=== PATIENT | female | born 1945 | race Caucasian/White ===

== ENCOUNTER 2018-10-13 16:17 | Inpatient (IN) | payer OTHER ==
[~2018-10-13] VITALS: Ht 154.9 cm; Wt 43.1 kg
[2018-10-13 16:34] VITALS: BP_SYST 99
[2018-10-13] MEDS ORDERED: NACL 0.9% 1,000 ML IV ONE (16:41)
[2018-10-13 17:37] LABS: HEMATOCRIT 37.9 % (36-48); HEMOGLOBIN 12.8 g/dL (12.0-16.0); RED BLOOD CELL COUNT(AUTO) 4.31 MIL/uL (4.2-6.2)
[2018-10-13 17:38] LABS: BASOPHILS # (AUTO) 0.1 K/uL (0.0-0.2); BASOPHILS % (AUTO) 0.7 % (0.0-2.0); EOSINOPHILS % (AUTO) 0.5 % (0.0-4.0); LYMPHOCYTES # (AUTO) 3.5 K/uL (1.0-5.5); LYMPHOCYTES % (AUTO) 39.1 % (20.5-51.5); MEAN CORPUSCULAR HEMOGLOBIN 30 pg (27-31); MEAN CORPUSCULAR HGB CONC 34 % (32-36); MEAN CORPUSCULAR VOLUME 88 fL (79.0-98.0); MONOCYTES # (AUTO) 0.8 K/uL (0.0-1.0); MONOCYTES % (AUTO) 8.5 % (1.7-9.3); NEUTROPHILS # (AUTO) 4.6 K/uL (1.8-7.7); NEUTROPHILS % (AUTO) 51.2 % (40.0-70.0); PLATELET COUNT (AUTO) 214 K/uL (130-430); RED CELL DISTRIBUTION WIDTH 13.5 % (9.0-15.0)
[2018-10-13 17:49] LABS: ANION GAP 7 (5-15); CALCIUM 9.3 mg/dL (8.4-11.0); CHLORIDE 101 mmol/L (98-107); CREATININE 0.72 mg/dL (0.55-1.30); GLUCOSE 106 mg/dL (70-99); SODIUM SERUM 136 mmol/L (136-145); UREA NITROGEN, BLOOD 21 mg/dL (8-21)
[2018-10-13 17:51] LABS: INR 1.1 (0.8-1.2); PROTHROMBIN TIME 11.3 SECS (9.5-12.5)
[2018-10-13 17:52] LABS: POTASSIUM 2.8 mmol/L (3.5-5.1)
[2018-10-13 17:53] LABS: ALANINE AMINOTRANSFERASE 50 U/L (12-78); ALBUMIN 3.3 g/dL (3.4-4.8); AMYLASE 56 U/L (0-100); ASPARTATE AMINOTRANSFERASE 73 U/L (10-37); LIPASE 607 U/L (73-393); TOTAL BILIRUBIN 0.9 mg/dL (0.0-1.0)
[2018-10-13] MEDS ORDERED: POTASSIUM CHLORIDE 20 MEQ/PKT PACKET PO ONE (18:00)
[2018-10-13 18:17] LABS: CKMB RELATIVE INDEX 0.7 (0.0-2.9); CREATINE KINASE MB 4.7 ng/mL (0-3.6)
[2018-10-13 18:23] LABS: ALCOHOL, BLOOD < 3 mg/dL (<10)
[2018-10-13] MEDS ORDERED: LEVO125T8 PO (18:24)
[2018-10-13 18:39] LABS: BILIRUBIN,URINE 1+ (NEGATIVE); BLOOD, URINE 3+ (NEGATIVE); CLARITY/URINE CLEAR (CLEAR); COLOR,URINE YELLOW (YELLOW); GLUCOSE,URINE NEGATIVE (NEGATIVE); KETONES,URINE 1+ (NEGATIVE); LEUKOCYTE ESTERASE ,URINE 1+ (NEGATIVE); NITRITE, URINE NEGATIVE (NEGATIVE); PROTEIN URINE 1+ (NEGATIVE); UROBILINOGEN,URINE 0.2 (0.2-1.0)
[2018-10-13 18:48] LABS: RBC,URINE 20-50 /HPF (0-3)
[2018-10-13 18:49] LABS: BACTERIA,URINE MODERATE /HPF (None Seen)
[2018-10-13] MEDS ORDERED: NACL 0.9% 1,000 ML IV SCH (18:51)
[2018-10-13 19:24] VITALS: BP_SYST 108
[2018-10-13] MEDS ORDERED: ZOLPIDEM TARTRATE 5 MG TABLET PO ONE (22:00)
[2018-10-13] MEDS ORDERED: ACETAMINOPHEN 325 MG TABLET PO PRN (23:15)
[2018-10-13] MEDS ORDERED: ALBUTEROL SULFATE 0.083% 2.5 MG/3 ML VIAL.NEB INH PRN (23:15)
[2018-10-13] MEDS ORDERED: POTASSIUM CHLORIDE 10 MEQ TAB.PRT.SR PO ONE (23:15)
[2018-10-13] MEDS ORDERED: ONDANSETRON HCL 4 MG/2 ML VIAL IVP PRN (23:15)
[2018-10-13] MEDS ORDERED: cefTRIAXone 1 GM VIAL ONE (23:57)
[2018-10-13] MEDS: NACL 0.9% 1,000 ML IV SCH (23:58)
[2018-10-13] MEDS: cefTRIAXone 1 GM in D5W 50 ML IV SCH (23:59)
[2018-10-14 00:27] VITALS: BP_SYST 97
[2018-10-14 01:37] VITALS: BP_SYST 108
[2018-10-14 03:36] LABS: BARBITURATE, URINE NEGATIVE (NEG <=200); BENZODIAZEPINE, URINE NEGATIVE (NEG <=150); CANNABINOID, URINE NEGATIVE (NEG <=50); COCAINE, URINE NEGATIVE (NEG <=150); METHAMPHETAMINES SCREEN,URINE NEGATIVE (NEG <=500); OPIATE, URINE NEGATIVE (NEG <=100); PHENCYCLIDINE SCREEN,URINE NEGATIVE (NEG <=25); UR TRICYCLIC ANTIDEPRESSANTS NEGATIVE (NEG <=300); URINE AMPHETAMINE NEGATIVE (NEG <=500); URINE METHADONE NEGATIVE (NEG <=200); URINE OXYCODONE SCREEN NEGATIVE (NEG <=100); URINE PROPOXYPHENE SCREEN NEGATIVE (NEG <=300)
[2018-10-14 04:11] LABS: ANION GAP 7 (5-15); CALCIUM 8.2 mg/dL (8.4-11.0); CHLORIDE 108 mmol/L (98-107); CREATININE 0.55 mg/dL (0.55-1.30); GLUCOSE 91 mg/dL (70-99); POTASSIUM 3.3 mmol/L (3.5-5.1); SODIUM SERUM 143 mmol/L (136-145); UREA NITROGEN, BLOOD 15 mg/dL (8-21)
[2018-10-14 04:27] LABS: ALANINE AMINOTRANSFERASE 41 U/L (12-78); ALBUMIN 2.4 g/dL (3.4-4.8); ASPARTATE AMINOTRANSFERASE 56 U/L (10-37)
[2018-10-14 04:39] LABS: TOTAL BILIRUBIN 0.3 mg/dL (0.0-1.0)
[2018-10-14 04:53] LABS: HEMATOCRIT 34.2 % (36-48); HEMOGLOBIN 11.4 g/dL (12.0-16.0); MEAN CORPUSCULAR HEMOGLOBIN 29 pg (27-31); MEAN CORPUSCULAR HGB CONC 33 % (32-36); MEAN CORPUSCULAR VOLUME 88 fL (79.0-98.0); RED BLOOD CELL COUNT(AUTO) 3.88 MIL/uL (4.2-6.2); WHITE BLOOD COUNT (AUTO) 6.8 K/uL (4.8-10.8)
[2018-10-14 04:54] LABS: BASOPHILS % (AUTO) 0.2 % (0.0-2.0); EOSINOPHILS # (AUTO) 0.1 K/uL (0.0-0.4); EOSINOPHILS % (AUTO) 2.1 % (0.0-4.0); MONOCYTES # (AUTO) 0.5 K/uL (0.0-1.0); NEUTROPHILS # (AUTO) 3.1 K/uL (1.8-7.7); NEUTROPHILS % (AUTO) 45.7 % (40.0-70.0); PLATELET COUNT (AUTO) 174 K/uL (130-430); RED CELL DISTRIBUTION WIDTH 13.5 % (9.0-15.0)
[2018-10-14 04:59] LABS: CKMB RELATIVE INDEX 0.6 (0.0-2.9); CREATINE KINASE MB 2.5 ng/mL (0-3.6)
[2018-10-14] MEDS: NACL 0.9% 1,000 ML IV SCH ×3 (05:04→23:14)
[2018-10-14] MEDS ORDERED: POTASSIUM CHLORIDE 10 MEQ TAB.PRT.SR PO ONE (07:30)
[2018-10-14 08:00] VITALS: BP_SYST 98
[2018-10-14] MEDS ORDERED: NS 500 ML IV ONE (08:00)
[2018-10-14] MEDS ORDERED: KCL 20 mEq in 100 mL (PREMIX) 200 ML IV ONE (08:00)
[2018-10-14 08:50] LABS: FREE T4 (FREE THYROXINE) 0.6 ng/dl (0.8-1.5)
[2018-10-14 12:57] VITALS: BP_SYST 117
[2018-10-14] MEDS: LEVOTHYROXINE SODIUM 0.125 MG TABLET PO SCH (14:21)
[2018-10-14 16:34] VITALS: BP_SYST 103
[2018-10-14 19:47] VITALS: BP_SYST 114
[2018-10-14] MEDS: cefTRIAXone 1 GM in D5W 50 ML IV SCH (23:13)
[2018-10-15 00:16] VITALS: BP_SYST 94
[2018-10-15] MEDS: NACL 0.9% 1,000 ML IV SCH ×3 (06:46→20:33)
[2018-10-15 07:28] LABS: HEMOGLOBIN 11.6 g/dL (12.0-16.0); LYMPHOCYTES % (AUTO) 49.8 % (20.5-51.5); MEAN CORPUSCULAR HEMOGLOBIN 29 pg (27-31); MEAN CORPUSCULAR HGB CONC 33 % (32-36); MEAN CORPUSCULAR VOLUME 88 fL (79.0-98.0); PLATELET COUNT (AUTO) 162 K/uL (130-430); RED BLOOD CELL COUNT(AUTO) 3.96 MIL/uL (4.2-6.2); RED CELL DISTRIBUTION WIDTH 13.7 % (9.0-15.0); WHITE BLOOD COUNT (AUTO) 5.5 K/uL (4.8-10.8)
[2018-10-15 07:29] LABS: BASOPHILS % (AUTO) 0.3 % (0.0-2.0); EOSINOPHILS # (AUTO) 0.3 K/uL (0.0-0.4); EOSINOPHILS % (AUTO) 5.2 % (0.0-4.0); LYMPHOCYTES # (AUTO) 2.7 K/uL (1.0-5.5); MONOCYTES # (AUTO) 0.4 K/uL (0.0-1.0); MONOCYTES % (AUTO) 6.7 % (1.7-9.3); NEUTROPHILS # (AUTO) 2.1 K/uL (1.8-7.7)
[2018-10-15 07:42] LABS: ALANINE AMINOTRANSFERASE 41 U/L (12-78); ALBUMIN 2.2 g/dL (3.4-4.8); ANION GAP 2 (5-15); ASPARTATE AMINOTRANSFERASE 57 U/L (10-37); CALCIUM 8.3 mg/dL (8.4-11.0); CHLORIDE 106 mmol/L (98-107); CREATININE 0.46 mg/dL (0.55-1.30); GLUCOSE 85 mg/dL (70-99); POTASSIUM 3.7 mmol/L (3.5-5.1); SODIUM SERUM 134 mmol/L (136-145); TOTAL BILIRUBIN 0.3 mg/dL (0.0-1.0); UREA NITROGEN, BLOOD 7 mg/dL (8-21)
[2018-10-15 08:13] VITALS: BP_SYST 106
[2018-10-15] MEDS: LEVOTHYROXINE SODIUM 0.125 MG TABLET PO SCH (08:14)
[2018-10-15 09:24] LABS: CKMB RELATIVE INDEX 0.6 (0.0-2.9); CREATINE KINASE MB 2.1 ng/mL (0-3.6)
[2018-10-15] MEDS: LORazepam 2 MG/ML VIAL IV PRN ×2 (11:35→20:30)
[2018-10-15 12:44] VITALS: BP_SYST 115
[2018-10-15 17:03] VITALS: BP_SYST 99
[2018-10-15 19:50] VITALS: BP_SYST 102
[2018-10-15] MEDS: cefTRIAXone 1 GM in D5W 50 ML IV SCH (23:33)
[2018-10-16] VITALS: BP_SYST 99
[2018-10-16] MEDS: LORazepam 2 MG/ML VIAL IV PRN (03:02)
[2018-10-16] MEDS: NACL 0.9% 1,000 ML IV SCH (05:09)
[2018-10-16 07:39] LABS: ALBUMIN 2.3 g/dL (3.4-4.8); ASPARTATE AMINOTRANSFERASE 67 U/L (10-37); CALCIUM 8.2 mg/dL (8.4-11.0); CHLORIDE 106 mmol/L (98-107); CREATININE 0.42 mg/dL (0.55-1.30); GLUCOSE 82 mg/dL (70-99); POTASSIUM 3.2 mmol/L (3.5-5.1); SODIUM SERUM 136 mmol/L (136-145); TOTAL BILIRUBIN 0.4 mg/dL (0.0-1.0); UREA NITROGEN, BLOOD 5 mg/dL (8-21)
[2018-10-16 08:00] VITALS: BP_SYST 100
[2018-10-16] MEDS: LEVOTHYROXINE SODIUM 0.125 MG TABLET PO SCH (08:08)
[2018-10-16 08:09] LABS: ALANINE AMINOTRANSFERASE 65 U/L (12-78); ANION GAP < 3 (5-15)
[2018-10-16] MEDS ORDERED: ASPI-1153 PO (10:12)
[2018-10-16] MEDS ORDERED: DONE10TA44 PO (10:13)
[2018-10-16] MEDS ORDERED: MEMA5TAB PO (10:13)
[2018-10-16] MEDS ORDERED: MULT-1089 PO (10:14)
[2018-10-16] MEDS ORDERED: CEPH250C PO (10:15)
[2018-10-16 12:43] VITALS: BP_SYST 120
[2018-10-16 13:29] VITALS: BP_SYST 114; BP_SYST 120
[2018-10-16 16:02] VITALS: BP_SYST 114
== END 2018-10-16 17:15 | disposition home or self-care (01) | DRG 884 ==
LOC: SED 16:17 → STU 18:54 → SMU 10-16 07:50
PROVIDERS: ADMIT Internal Medicine; ATTEND Internal Medicine
DX: F03.90 Unspecified dementia, unspecified severity, without behavioral disturbance, psychotic disturbance, mood disturbance, and anxiety (principal); M62.82 Rhabdomyolysis; N39.0 Urinary tract infection, site not specified; E44.1 Mild protein-calorie malnutrition; I48.91 Unspecified atrial fibrillation; E87.6 Hypokalemia; E03.9 Hypothyroidism, unspecified; I10 Essential (primary) hypertension; E86.0 Dehydration; I34.1 Nonrheumatic mitral (valve) prolapse; I48.0 Paroxysmal atrial fibrillation; Z82.49 Family history of ischemic heart disease and other diseases of the circulatory system; Z88.6 Allergy status to analgesic agent; Z88.1 Allergy status to other antibiotic agents; Z88.8 Allergy status to other drugs, medicaments and biological substances; Z90.49 Acquired absence of other specified parts of digestive tract
CPT/HCPCS: 36415; 70450-TC; 70551; 71045; 71046-TC; 80053; 80307; 81000-TC; 82150-TC; 82550-TC; 82553-TC; 83605; 83690-TC; 83735-TC; 83880; 84439; 84443-TC; 84480; 84484; 85025; 85379; 85610-TC; 85730-TC; 87040-TC; 87086; 93005; 93306; 96365; 97110-GP; 97116-GP; 97530-GP; 99285; G0378; G0482; J0696; J2060; J3480; J7030; J7042; J7060

== ENCOUNTER 2019-02-12 11:01 | Day surgery (SDC) | payer OTHER ==
[~2019-02-12] VITALS: Ht 160 cm; Wt 49.9 kg
[~2019-02-12 11:01] MED LIST: ASPI-1153 PO; CEPH250C PO; DONE10TA44 PO; LEVO125T8 PO; MEMA5TAB PO; MULT-1089 PO
[2019-02-12] MEDS ORDERED: ONDANSETRON HCL 4 MG/2 ML VIAL IVP ONE (13:30)
[2019-02-12] MEDS ORDERED: KETOROLAC TROMETHAMINE 15 MG VIAL IVP ONE (13:30)
[2019-02-12] MEDS ORDERED: BUPIVACAINE LIPOSOME/PF 266 MG/20 ML VIAL INFIL ONE ×2 (13:30→14:49)
[2019-02-12] MEDS ORDERED: NS IRRIG SOLN 1000 ML IR ONE (13:30)
[2019-02-12] MEDS ORDERED: MIDAZOLAM HCL 5 MG/5 ML VIAL IVP ONE (13:30)
[2019-02-12] MEDS ORDERED: ROCURONIUM BROMIDE 10 MG/ML (ZEMURON) IV ONE (13:30)
[2019-02-12] MEDS ORDERED: DEXAMETHASONE SOD PHOSPHATE 4 MG/ML VIAL IVP ONE (13:30)
[2019-02-12] MEDS ORDERED: CLINDAMYCIN PHOSPHATE 600 mg/50mL D5W IV ONE (13:30)
[2019-02-12] MEDS ORDERED: PROPOFOL 200MG/ 20ML VIAL (DIPRIVAN) IV ONE (13:30)
[2019-02-12] MEDS ORDERED: fentaNYL CITRATE/PF 100 MCG/2 ML AMP IVP ONE (13:30)
[2019-02-12] MEDS ORDERED: ROPIVACAINE HCL/PF 5 MG/ML 0.5% 30 ML VIAL INFIL ONE (13:30)
[2019-02-12] MEDS ORDERED: SEVOFLURANE 15 MIN GAS INH ONE (13:30)
[2019-02-12] MEDS ORDERED: WELSR150 PO (13:57)
[2019-02-12] MEDS ORDERED: POLYMYXIN 500,000/BACIT.10,000 UNITS in NS IRR 1 L IR ONE (14:14)
[2019-02-12] MEDS ORDERED: LR 1,000 ML IV SCH (14:39)
[2019-02-12] MEDS ORDERED: MEPERIDINE HCL/PF 25 MG/ML DISP.SYRIN IVP PRN (14:45)
[2019-02-12] MEDS ORDERED: HYDROmorphone 2 MG/ML VIAL IVP PRN ×2 (14:45)
[2019-02-12] MEDS ORDERED: HYDROmorphone 1 MG INJ. 1 MG/ML AMPUL IVP PRN ×2 (14:45→15:00)
[2019-02-12] MEDS ORDERED: HYDROcodone/ACETAMIN 5-325 MG TAB (NORCO/ VICODIN) PO PRN (15:00)
[2019-02-12] MEDS ORDERED: ONDANSETRON HCL 4 MG/2 ML VIAL IVP PRN (15:00)
[2019-02-12 16:24] VITALS: BP_SYST 127
--- NOTE | 2019-02-12 16:30 | NUR ---
Admission Patient arrived on unit on bed. Patient is able to state name and date of , but unable to state time. Patient is post op and unable to state where she is from. Iv patent, intact, and infusing as ordered. SCD in place, educated patient on the incentive spirometer, how to use, when to use, and how often to uise, patient verbalized understanding, return demonstration performed by patient. 1000cc inspired. No complaints of pain. Abdominal surgical dressing in place, with scant amount of blood. Abdominal binder in place. Vital signs stable at this time. On safety precautions, bed alarm on, bed in lowest position, call light within reach. Will continue to monitor.
--- NOTE | 2019-02-12 16:41 | NUR ---
CONSULTATION PAGED/CALLED Reason for Consultation: MEDICAL MANAGEMENT Person Who was Notified: SAMREEN Consulting Physician: DR. MESA Soda Flaker Specialty: HOSPITALIST Ordering Physician: DR. SMITH
--- NOTE | 2019-02-12 17:09 | NUR ---
Spoke to DR. Ny regarding consult for medical management , home medication to reconcile.
--- NOTE | 2019-02-12 18:09 | NUR ---
Closing note Patient noted to be confused and forgetful, reoriented patient to date and time, and regarding post op. Patient stated she forgot. Cl;ear liquid diet offered to patient, patient stated she is having to pee a lot so she will not drink. On safety and aspiration precautions, HOB kept elevated, bed in lowest position, bed alarm on, call light within reach. Patient in stable condition. All needs met.
--- NOTE | 2019-02-12 19:04 | NUR ---
[facility] Spoke with daughter, patient is from [facility] memory unit. Daughter would like to be called upon discharge and take patient back to [facility].
--- NOTE | 2019-02-12 19:32 | NUR ---
OPENING NOTE Received report from day shift nurse. Patient resting in bed awake, alert, oriented x3. Breathing unlabored and even on room air. No signs of distress, no needs at this time. Fall and safety precautions in place. Bed in lowest position, brake on, alarm on, call light within reach. Family at the bedside. Will continue to monitor.
[2019-02-12 20:00] VITALS: BP_SYST 117
--- NOTE | 2019-02-12 21:09 | NUR ---
Patient's bed alarm went off. Placed patient back into bed. Educated patient on safety and how to use the call light. Instructed patient to stay in bed. Patient verbalized understanding.
--- NOTE | 2019-02-12 21:34 | NUR ---
Patient attempting to get out of bed. Placed patient back into bed. Re-oriented patient. Bed alarm on.
--- NOTE | 2019-02-12 23:21 | NUR ---
Patient resting in bed awake, alert, oriented x3. Breathing unlabored and even on room air. No signs of distress, no needs at this time. Fall and safety precautions in place. Bed in lowest position, brake on, alarm on, call light within reach. Will continue to monitor.
[2019-02-13 00:28] VITALS: BP_SYST 112
--- NOTE | 2019-02-13 03:43 | NUR ---
Patient resting in bed with eyes closed. Breathing unlabored and even on room air. No signs of distress, no needs at this time. Fall and safety precautions in place. Bed in lowest position, brake on, alarm on, call light within reach. Will continue to monitor.
[2019-02-13 06:21] LABS: BASOPHILS % (AUTO) 0.1 % (0.0-2.0); EOSINOPHILS % (AUTO) 0.1 % (0.0-4.0); HEMATOCRIT 36.6 % (36-48); LYMPHOCYTES # (AUTO) 1.4 K/uL (1.0-5.5); LYMPHOCYTES % (AUTO) 14.5 % (20.5-51.5); MEAN CORPUSCULAR HEMOGLOBIN 29 pg (27-31); MEAN CORPUSCULAR HGB CONC 33 % (32-36); MEAN CORPUSCULAR VOLUME 89 fL (79.0-98.0); MONOCYTES # (AUTO) 0.9 K/uL (0.0-1.0); MONOCYTES % (AUTO) 9.6 % (1.7-9.3); NEUTROPHILS # (AUTO) 7.5 K/uL (1.8-7.7); NEUTROPHILS % (AUTO) 75.7 % (40.0-70.0); PLATELET COUNT (AUTO) 205 K/uL (130-430); RED BLOOD CELL COUNT(AUTO) 4.13 MIL/uL (4.2-6.2); RED CELL DISTRIBUTION WIDTH 13.6 % (9.0-15.0); WHITE BLOOD COUNT (AUTO) 9.9 K/uL (4.8-10.8)
[2019-02-13] MEDS ORDERED: LEVOTHYROXINE SODIUM 0.125 MG TABLET PO SCH (06:30)
--- NOTE | 2019-02-13 06:42 | NUR ---
Nutrition Update Keyon Scale 17 noted. Pt admitted for Ventral Hernia w/o Obstruction or Gangrene Diet: Clear liquid BMI: 19.5 kg/m2 RD to follow per nutrition care standards.
[2019-02-13 06:51] LABS: ALANINE AMINOTRANSFERASE 34 U/L (12-78); ALBUMIN 2.9 g/dL (3.4-4.8); ANION GAP 4 (5-15); ASPARTATE AMINOTRANSFERASE 25 U/L (10-37); CALCIUM 8.9 mg/dL (8.4-11.0); CHLORIDE 106 mmol/L (98-107); CREATININE 0.68 mg/dL (0.55-1.30); GLUCOSE 89 mg/dL (70-99); POTASSIUM 4.3 mmol/L (3.5-5.1); SODIUM SERUM 141 mmol/L (136-145); TOTAL BILIRUBIN 0.5 mg/dL (0.0-1.0); UREA NITROGEN, BLOOD 12 mg/dL (8-21)
--- NOTE | 2019-02-13 06:52 | NUR ---
CLOSING NOTE Patient resting in bed with eyes closed. Breathing unlabored and even on room air. No signs of distress, no needs at this time. Fall and safety precautions in place. Bed in lowest position, brake on, alarm on, call light within reach. Will endorse cares to day shift nurse.
--- NOTE | 2019-02-13 07:30 | NUR ---
initial notes rec patient awake alert with periods of forgetfulness. ivl on the l forearm intact. no infiltration noted. abd dressing intact. dr guzman in here and will d/c patient. denies pain. resp easy and unlabored. no osb noted. bed to the lowest station and patient close to the nurse station.
[2019-02-13 08:00] VITALS: BP_SYST 93
--- NOTE | 2019-02-13 08:00 | NUR ---
Dressing changed Seen and examined by DR. Verduzco , patient denies any pain ,slept well as verbalized , lower abdominal post operative dressing removed , incision with steri strip dry.clean , dry dressing applied non adherent pads covered by opsite ,kept with abdominal binder.
[2019-02-13] MEDS ORDERED: DONEPEZIL HCL 5 MG TABLET (ARICEPT) PO SCH (09:00)
[2019-02-13] MEDS ORDERED: MEMANTINE HCL 5 MG TABLET PO SCH (09:00)
[2019-02-13] MEDS ORDERED: buPROPion HCL 150 MG TABLET.SA PO SCH (09:00)
[2019-02-13] MEDS ORDERED: ASPIRIN 81 MG TABLET(ECOTRIN) PO SCH (09:00)
--- NOTE | 2019-02-13 10:00 | NUR ---
rounds seen by dr conde.
--- NOTE | 2019-02-13 10:21 | NUR ---
Patent tolerating soft diet 75%, ambulates with steady gait , denies any pain , Dr. Ny informed, ok to discharge if cleared by surgeon.
[2019-02-13 10:42] VITALS: BP_SYST 93
== END 2019-02-13 13:15 | disposition home or self-care (01) ==
LOC: SDS 11:01 → SMU 11:09 → SDS 02-13 13:15
PROVIDERS: ATTEND Surgery
DX: K43.2 Incisional hernia without obstruction or gangrene (principal); F03.90 Unspecified dementia, unspecified severity, without behavioral disturbance, psychotic disturbance, mood disturbance, and anxiety
CPT/HCPCS: 36415; 49560; 64488; 80053; 85025; 87081 ×2; 88302; C9290; J1100; J1885; J2250; J2405; J2704; J3010; J3490; J7120